=== PATIENT | female | born 2000 | race Caucasian/White ===

== ENCOUNTER 2022-03-16 19:10 | Emergency (ER) | payer BC ==
[~2022-03-16] VITALS: Ht 157.5 cm; Wt 68.0 kg
[2022-03-16 19:47] VITALS: BP_SYST 122
--- NOTE | 2022-03-16 19:50 | NUR ---
Patient triaged and placed in waiting room. VSS and patient appears in no acute distress at this time. Accompanied by SELF, awaiting available bed, and MD notified of need for MSE.
--- NOTE | 2022-03-16 22:45 | NUR ---
pt C/O vaginal pain frequency, pain and blood in urine Pt AOX4 VSS Verbally responsive Able to make needs known Pt exited ED in stable condition
[2022-03-16 22:54] LABS: BILIRUBIN,URINE NEGATIVE (NEGATIVE); BLOOD, URINE 3+ (NEGATIVE); CLARITY/URINE CLOUDY (CLEAR); COLOR,URINE YELLOW (YELLOW); GLUCOSE,URINE NEGATIVE (NEGATIVE); KETONES,URINE NEGATIVE (NEGATIVE); LEUKOCYTE ESTERASE ,URINE 3+ (NEGATIVE); NITRITE, URINE POSITIVE (NEGATIVE); PROTEIN URINE 2+ (NEGATIVE); UROBILINOGEN,URINE 0.2 (0.2-1.0)
[2022-03-16 23:17] LABS: BACTERIA,URINE MODERATE /HPF (None Seen); WBC,URINE >100 /HPF (0-3)
[2022-03-16] MEDS ORDERED: CEPHALEXIN 125 MG/5 ML, 100 ML BTL PO ONE (23:45)
[2022-03-16] MEDS ORDERED: PHENAZOPYRIDINE HCL 100 MG TABLET PO ONE (23:45)
[2022-03-16] MEDS ORDERED: CEPH250C PO (23:46)
[2022-03-16] MEDS ORDERED: PHEN-726 PO (23:46)
[2022-03-16] MEDS ORDERED: cephALEXin 500 MG CAPSULE ONE (23:54)
[2022-03-16 23:57] VITALS: BP_SYST 145
--- NOTE | 2022-03-16 23:59 | NUR ---
Pt DC per MD's order DC instructions and prescription given to pt Pt DC per MD's order Pt verbalized understandings Pt AOX4 VSS Verbally responsive Able to make needs known Pt exited ED in stable condition
[2022-03-17] MEDS ORDERED: cephALEXin 500 MG CAPSULE PO ONE
== END 2022-03-16 23:57 | disposition home or self-care (01) ==
LOC: SED 19:10
DX: N39.0 Urinary tract infection, site not specified (principal); R30.0 Dysuria; Z79.899 Other long term (current) drug therapy
CPT/HCPCS: 81000; 87086; 99283